=== PATIENT | female | born 1995 | race African-American/Black ===

== ENCOUNTER 2022-07-02 20:04 | Emergency (ER) | payer OTHER ==
[2022-07-02] MEDS ORDERED: Tetracaine 0.5% PF 4 ML BOT ONE (20:24)
[2022-07-02] MEDS ORDERED: Fluorescein Opthalmic Strip ONE (20:24)
[2022-07-02] MEDS ORDERED: Proparacaine 0.5% Opth 15 ML BOT EA EYE SCH (20:30)
== END 2022-07-02 20:38 | disposition home or self-care (01) ==
LOC: CSHERS 20:04
DX: H02.812 Retained foreign body in right lower eyelid (principal)
CPT/HCPCS: 99283